=== PATIENT | female | born 1945 | race African-American/Black ===

== ENCOUNTER 2025-08-17 21:49 | Emergency (ER) | payer MEDICARE ==
[~2025-08-17 21:49] MED LIST: Iopamidol 370 76% 100 ML VIAL ONE
[2025-08-17 22:34] LABS: Hematocrit 30.5 % (34.9-44.5); Hemoglobin 10.3 g/dL (12.0-15.5); Mean Corpuscular Hemoglobin 24.3 pg (27.0-33.0); Mean Corpuscular Volume 72.1 fL (81.6-98.3); Platelet Count 313 10x3/uL (150-450); Red Blood Cell (RBC) Count 4.23 10x6/uL (3.90-5.03); White Blood Cell (WBC) Count 11.54 10x3/uL (3.5-10.5)
[2025-08-17 22:42] LABS: ALT (SGPT) 46 U/L (Less than 34); AST (SGOT) 155 U/L (11-34); Albumin 2.7 g/dL (3.1-4.5); Alkaline Phosphatase 346 U/L (40-110); Anion Gap 18 mmol/L (10-20); BUN (Urea Nitrogen) 15 mg/dL (9.8-20.1); Bilirubin, Total 0.8 mg/dL (0.3-1.2); Calc. Creatinine Clearance 0 mL/min (70-130); Calcium 8.7 mg/dL (7.8-10.44); Carbon Dioxide 20 mmol/L (23-31); Chloride 97 mmol/L (98-107); Globulin 4.6 g/dL (2.4-3.5); Glucose 283 mg/dL (83-110); Potassium 4.3 mmol/L (3.5-5.1); Sodium 131 mmol/L (136-145)
[2025-08-17 22:43] LABS: Troponin I Less than 0.010 ng/mL (< 0.028)
[2025-08-17 22:54] LABS: #Basophils 0.04 10x3/uL (0.0-0.2); #Eosinophils 0.14 10x3/uL (0.0-0.5); #Monocytes 1.16 10x3/uL (0.0-1.1); #Neutrophils 7.66 10x3/uL (1.5-8.4); %Basophils 0.3 % (0.0-2.0); %Eosinophils 1.2 % (0.0-6.0); %Lymphocytes 21.2 % (18.0-47.0); %Monocytes 10.1 % (0.0-10.0); %Neutrophils 66.4 % (40.0-75.0); Burr Cells SLIGHT = 2-5 cells (100X) (0-1/hpf); Platelet Adequacy Comment Appears Adequate; Polychromasia SLIGHT = 2-3 cells (100X) (0-2/hpf)
[2025-08-17 23:16] LABS: Glucose, Urine (Dipstick) 50 mg/dL (Negative); Leukocyte Negative (Negative); Protein, Urine (Dipstick) 30 mg/dl (Neg-Trace); Specific Gravity, Urine 1.010 (1.005-1.030)
[2025-08-17] MEDS ORDERED: Cefepime 2 GM VIAL ONE (23:53)
[2025-08-18 00:02] LABS: Actual Bicarbonate (HCO3v) 22.4 mEq/L (22-28); Analyzer IN Cardio CS ER; Base Excess -1.7 mEq/L (-2 - +2); Calcium, Ionized (venous) 1.14 mmol/L (1.16-1.32); Chloride (VBG) 97 mmol/L (98-106); Hematocrit-VBG 34 % (36.0-47.0); Hemoglobin (Hb) 11.6 g/dL (11.7-16.1); Potassium (VBG) 3.90 mmol/L (3.70-5.30); Puncture Site Other Site; RapidComm Collect By Lab; Sodium 131 mmol/L (133-146)
[2025-08-18 00:32] LABS: Bacteria/HPF Rare-Few HPF (None Seen); CAUTI Indications for Culture Pelvic or flank pain; RBC/HPF 0-3 HPF (0-3); WBC/HPF 0-3 HPF (0-3)
[2025-08-18 00:33] LABS: Urine Culture Reflex No No
[2025-08-18 01:04] LABS: Troponin I 0.014 ng/mL (< 0.028)
[2025-08-18] MEDS ORDERED: VANCOMYCIN 2 GRAM/400 ML BAG 2 GM in Premix 1 BAG IVPB SCH (03:15)
== END 2025-08-18 04:24 | disposition short-term general hospital (02) ==
LOC: CSHERS 21:49
DX: A41.9 Sepsis, unspecified organism (principal); J91.0 Malignant pleural effusion; J96.90 Respiratory failure, unspecified, unspecified whether with hypoxia or hypercapnia; I62.00 Nontraumatic subdural hemorrhage, unspecified; C49.12 Malignant neoplasm of connective and soft tissue of left upper limb, including shoulder; C14.2 Malignant neoplasm of Waldeyer's ring; E11.9 Type 2 diabetes mellitus without complications; I10 Essential (primary) hypertension; Z79.899 Other long term (current) drug therapy
CPT/HCPCS: 70450; 71045; 71275; 80053; 81001; 82805; 82962; 83605; 83880; 84484 ×2; 85025; 87040; 87086; 87426; 93005; 94760; J0692; J3375; Q9967; 36415; 36416; 51701; 96365; 96375